=== PATIENT | female | born 1955 | race Caucasian/White ===

== ENCOUNTER 2017-04-24 09:31 | Day surgery (SDC) | payer SELFPAY ==
[2017-04-23 13:18] VITALS: BP 173/90; BMI 29.8
[2017-04-24] VITALS (9 sets, daily range): BP systolic 141–153; BP diastolic 63–84; PULSE 65–91; RESP 16–18; TEMP 36.2–37.3; O2SAT 98–100; BMI 30.6
--- NOTE | 2017-04-24 09:28 | EKG12_ITS ---
Test Reason : PRE OP Blood Pressure : / mmHG Vent. Rate : 089 BPM Atrial Rate : 089 BPM P-R Int : 146 ms QRS Dur : 088 ms QT Int : 364 ms P-R-T Axes : 074 069 063 degrees QTc Int : 442 ms Normal sinus rhythm Normal ECG Confirmed by PEÑA HURST, SILVIO ([id number]), writer editor BLANCO CARVALHO ([id number]) on 04/28/2017 2:20:48 PM Referred By: Gaetano Ireland Confirmed By:SILVIO POMPA MD
[2017-04-24 10:27] LABS: Thyroid Stim Hormone (TSH) 4.26 uIU/mL (0.358-3.74)
--- NOTE | 2017-04-24 11:30 | GALL_PTH ---
PATIENT: JODY [place]ERRY [place] [facility] [id number] AGE/SX: 61/F ROOM: RE04/24/[address]: Dr. Gaetano Ireland MD : 1955 BED: DIS: 04/24/2017 SPEC #: [id number] RECD: 04/24/17 14:05 STATUS: SHARLENE GEORGINA #: [id number] JANINE: 04/24/17 11:[address]: Gaetano Ireland DEPT: SURGICAL PATHOLOGY RECD BY: Anjelica Ace ENTERED: 04/24/17 14:14 SP TYPE: CHADWICK LEIVA DR: Dr. Len Yousif MD Tissues: Gallbladder, NOS Procedures: Surgery Specimen Level III HEADER OPERATION: Laparoscopic, cholecystomy PRE-OP DIAGNOSIS: Biliary dyskinesia TISSUE SUBMITTED: Gallbladder MICROSCOPIC DIAGNOSIS Gallbladder: Minimal chronic cholecystitis. No stones are identified in the container or in the gallbladder SJ:ivy 2/9/18 MICROSCOPIC DESCRIPTION Slides are reviewed. GROSS DESCRIPTION Received is one container labeled with the patient's name and designated gallbladder. The specimen consists of a gallbladder measuring 8.5 cm in length and up to 3.5 cm in diameter. The external surface is pink-woodard, smooth and glistening for the most part. Focally it is granular, hemorrhagic and contains cautery artifact. The gallbladder contains green-yellow mucoid bile. No stones are identified in the container or in the gallbladder. The mucosa is bile-stained and without any mass lesions. The gallbladder wall measures 0.1 cm in thickness. Boring Machine Set Up Operator sections from the gallbladder and the cystic duct are submitted in one cassette. / SJ:rg 04/24/17 TC:3 [facility]: [id number]
--- NOTE | 2017-04-24 11:35 | DCINST_ITS ---
Discharge Diet: Light diet - advance as tolerated Discharge Activity: May Not Drive - for 2-3 days or while taking narcotic pain medications., - - Do not drive, work heavy equipment or sign legal documents for 24 hours. May shower in (days): 1 - with the bandage in place. Additional Activity Instructions:: Pain medication may cause nausea. You should typically eat light foods as you take your pain medications. Pain medication may also cause constipation. If this is a problem for you, please discuss with your doctor. Call your doctor if your incision/area has: Continuous Slow Oozing, Sudden Increased Bleeding, Increased Pain/ Swelling, Increased Redness, Foul Smelling Discharge Call your doctor if you observe: Fever of 101 or Higher Suture Line Care: Avoid Pulling/Pushing, Avoid Pinching/Bending Additional Dressing/Incision Instructions:: Leave operative bandaids on for 2 days. When you remove dressing, leave Steri-Strips on until your follow-up appointment, or until the Steri-Strips fall off on their own. Allergies/Adverse Reactions: Allergies levothyroxine sodium [From Synthroid] Allergy (Mild, Verified 04/23/17 13:20) Chest tightness Medications to take at Discharge Thytrophin 1 tab PO DAILY 04/23/17 hi pep 1 tab PO DAILY 04/23/17 lorazepam 0.5 mg tablet 0.5 mg PO QHS PRN 04/23/17 Oxycodone HCl/Acetaminophen [Percocet 5/325] 1 - 2 tab PO Q4H PRN PRN 4 Days # 30 tab 04/24/17 The following prescriptions were given: Oxycodone HCl/Acetaminophen [Percocet 5/325] 1 - 2 tab PO Q4H PRN PRN 4 Days # 30 tab PRN Reason: Pain Primary Care Physician: Len Yousif MD [Primary Care Provider] - Please Follow Up With: Gaetano Ireland MD - Please call [phone] to schedule an appointment. When: 7 days after your surgery.
--- NOTE | 2017-04-24 11:35 | PCM.OPRPT ---
Problem List (1) Biliary dyskinesia Status: Acute Report of Operation Date of Procedure: 04/24/17 Pre-Operative Diagnosis: K 82.8 biliary dyskinesia Post-Operative Diagnosis: Same Surgery/Procedure Performed:: 60519 laparoscopic cholecystectomy Type of Anesthesia:: General Description of Procedure: Patient was brought into the operating room and placed in the supine position. Under excellent general endotracheal intubation the abdomen was sterilely prepped and draped in the usual fashion. Local was injected infraumbilically and dissection was carried down to the fascia patient had a small umbilical hernia I entered into the hernia sac and was into the abdominal cavity without difficulty I placed a 1012 trocar directly into the abdominal cavity without injury to underlying structures. The abdomen was insufflated to 15 torr. A subxiphoid #5 trocar was placed, inferior to this another #5 trocar was placed, and laterally a #5 trocar was placed. Fundus of the gallbladder was grasped retracted in a cephalad direction. Moderate amount of adhesions were taken down from the gallbladder. I dissected out the cystic duct place hemoclips proximally and distally and ligated the duct. Identified the cystic artery place hemoclips proximally and distally and ligated the artery. I deliver the gallbladder from the gallbladder bed and the process I identified the posterior branch of the cystic artery placed a Hemoclip on this. Once I had the gallbladder detached from the liver I placed it into a specimen bag and brought it out through the umbilical port without difficulty there was no spillage of bile. I reinflated the abdomen inspected the liver bed good hemostasis was noted. I remove the trochars under direct visualization good hemostasis was noted. I closed the umbilical defect with 4 interrupted sutures of #1 Nurolon all placed under direct visualization. Local was injected. Skin incisions were brought together with interrupted sutures of 4-0 Monocryl. Steri-Strips were applied. Sterile dressings were applied. Patient tolerated the procedure well. - Admit VTE Documentation VTE Present on Admission: No VTE Mechan Device Prophylaxis: SCD's VTE Pharm Prophylaxis ordered?: No Reason prophylaxis not ordered:: Treatment Not Indicated
[2017-04-24] MEDS: Bupivacaine Mpf 0.5% 30 ML VIAL (11:41)
[2017-04-24] MEDS: oxyCODONE 5 MG Tablet 10 MG PO (14:16)
--- NOTE | 2017-04-24 16:58 | SUR.PHASEII ---
straight cath for about 250cc clear patricia urine. pt cris well.
== END 2017-04-24 17:01 | disposition home or self-care (01) ==
LOC: SDC 09:32 → AC 09:34
PROVIDERS: Anesthesiology; Family Provider Family Medicine; PCP Family Medicine; Visit Provider Surgery
PROC: (CPT 47562; principal; 2017-04-24 11:10)
DX: K82.8 Other specified diseases of gallbladder (principal); K21.9 Gastro-esophageal reflux disease without esophagitis; Z87.891 Personal history of nicotine dependence
CPT/HCPCS: 00790; 47562; 36415; 84443; 88304; 93005; J7120; J2405

== ENCOUNTER → 2024-04-14 | Outpatient (CLI) | payer MEDICARE, SELFPAY ==
--- NOTE | 2024-04-14 08:00 | FLU_PTH ---
PATIENT: JODY PERRY [facility] U#:[id number] AGE/SX: 68/F ROOM: RE04/14/[address]: Dr. Goyo Steele MD : 1955 BED: DIS: 04/14/2024 SPEC #: [id number] RECD: 04/14/24 10:58 STATUS: SHARLENE UPTONElida #: [id number] JANINE: 04/14/24 08:[address]: Goyo Steele DEPT: CYTOLOGY RECD BY: Jeanne Kong ENTERED: 04/14/24 12:07 SP TYPE: Fluid OTHR DR: Dr. Kelly Narvaez MD Tissues: A - Thyroid gland, NOS B - Thyroid gland, NOS C - Thyroid gland, NOS D - Thyroid gland, NOS Procedures: Special Stain Group II Surgery Specimen Level IV Cytospin Fluid Cytology Other HEADER Correlation with clinical, radiologic findings and appropriate follow up are necessary.OPERATION: Fine needle aspiration of thyroid nodule PRE-OP DIAGNOSIS: Thyroid nodule TISSUE SUBMITTED: A- Right thyroid nodule fluid, B- Right thyroid nodule slides, C- Left inferior thyroid nodule fluid, D- Left inferior thyroid slides DIAGNOSIS CYTOLOGY A. Right thyroid nodule fluid, fine needle aspiration (cytospins and cellblock): Negative for malignant cells. See comment. B. Right thyroid nodule, fine needle aspiration (slides): Consistent with benign follicular cells/colloid nodule, Alsea Category II. Adequate for evaluation. C. Left inferior thyroid nodule fluid, fine needle aspiration (cytospins and cellblock): Negative for malignant cells. See comment. D. Left inferior thyroid, fine needle aspiration (smears): Rare clusters of follicular cells with minimal atypia noted, Alsea Category III. Adequate for evaluation. See comment. 04/15/2024 COMMENT A. A few clusters of benign follicular cells are noted. C. This specimen entirely consists of blood only. D. The specimen consists of mixture of follicular cells and Hurthle cells. C/D. Per recommendations and a clinician-approved plan (a call was made to the referring doctor about the recommendation), genomic testing (Afirma) has been submitted. Results will be reported as an addendum and faxed to clinician. The Alsea System for thyroid diagnostic categorization was used in the evaluation of this case. Correlation with clinical, radiologic findings and appropriate follow up are necessary. CYTOLOGY STUDY Slides are reviewed. CYTOLOGY GROSS A. Received is 30 ml of red cloudy fluid labeled with the patient's name and and designated per the requisition as Right inferior nodule. Submitted for cytology preparation including cell block. B. Received are 4 smears labeled with the patient's name and designated per the requisition as Right thyroid nodule. Submitted for staining. C. Received is 10 ml of red-cloudy fluid labeled with the patient's name and and designated per the requisition as Left inferior thyroid nodule. Submitted for cytology preparation including cell block. D. Received are 4 smears labeled with the patient's name and designated per the requisition as Left inferior thyroid nodule. Submitted for staining. 04/14/2024 TC:5 CPT: [id number] ADDENDUM ADDENDUM ADDENDUM ADDENDUM ADDENDUM ADDENDUM ADDENDUM 04/27/2024 08:34 ADDENDUM 04/27/2024 08:34 ADDENDUM 04/27/2024 08:34 ADDENDUM 04/27/2024 08:34 ADDENDUM 04/27/2024 08:34 AFIRMA RESULTS REPORT - NODULE B RESULTS INTERPRETATION: The result of this 3.7 cm Alsea III nodule B is Afirma GSC benign, which suggests a low risk of cancer of approximately 4%. Please see complete report in e-chart or EMR
== END | disposition home or self-care (01) ==
LOC: LABSPEC 11:28
PROVIDERS: PCP Family Medicine; Referring Provider Surgery; Visit Provider Surgery
DX: E04.2 Nontoxic multinodular goiter (principal)
CPT/HCPCS: 88108; 88161; 88305; 88313

== ENCOUNTER → 2025-01-05 | Outpatient (CLI) | payer MEDICARE, SELFPAY ==
--- NOTE | 2025-01-05 11:37 | US_ITS ---
PROCEDURE: THYROID 01/05/2025 REASON FOR EXAM: MULTIPLE THYROID NODULES TECHNIQUE: Procedure Code: USTHY Modality: US Procedure: THYROID FINDINGS: Right thyroid lobe size: 5.9 x 2.2 x 1.9 cm Left thyroid lobe size: 8.2 x 3.4 x 3.2 cm Isthmus: 0.8 cm Background parenchymal echotexture is mildly heterogeneous Nodules: 1. Lobe: Right, Location: Mid, Size: 0.4 cm, Stability: N/A Composition: Solid or almost completely solid (+2) Echogenicity: Hypoechoic (+2) Margin: Smooth (+0) Shape: Wider than tall (+0) Echogenic Foci: Peripheral calcification (+2) TI-RADS: 4 2. Lobe: Right, Location: Mid, Size: 1.7 cm, Stability: N/A Composition: Solid or almost completely solid (+2) Echogenicity: Hypoechoic (+2) Margin: Smooth (+0) Shape: Wider than tall (+0) Echogenic Foci: None (+0) TI-RADS: 4 3. Lobe: Left, Location: Upper, Size: 0.8 cm, Stability: N/A Composition: Solid or almost completely solid (+2) Echogenicity: Hyper to Isoechoic (+1) Margin: Smooth (+0) Shape: Wider than tall (+0) Echogenic Foci: None (+0) TI-RADS: 3 4. Lobe: Left, Location: Mid mid to lower pole, Size: 3.4 cm, Stability: N/A Composition: Solid or almost completely solid (+2) Echogenicity: Hyper to Isoechoic (+1) Margin: Smooth (+0) Shape: Wider than tall (+0) Echogenic Foci: None (+0) TI-RADS: 3 US/Thyroid IMPRESSION: 1. Solid nodule left mid to lower pole TI-RADS 3. 3.2 cm. ACR White Paper gu idelines (Tessler, et al. J AM Amado Radiol. 2017; 14: 587-595) suggest the following: TIRADS level 3 nodule, size 2.5 cm or large r. FNA for tissue diagnosis. 2. Solid nodule left midpole 1.7 cm. TI rads 4. ACR White Paper guidelines ( Elie, et al. J AM Amado Radiol. 2017; 14: 587-595) suggest the following: TIRADS level 4 nodule, size 1-1.5 cm. Follow-up thyroid ultrasound at 1, 2, 3 and 5 years. Reading Location: [id number]
== END | disposition home or self-care (01) ==
LOC: US 11:35
PROVIDERS: PCP Family Medicine; Referring Provider Surgery; Visit Provider Surgery
DX: E04.2 Nontoxic multinodular goiter (principal)
CPT/HCPCS: 76536